=== PATIENT | female | born 1975 | race African-American/Black ===

== ENCOUNTER 2018-07-24 19:32 | Emergency (ER) | payer OTHER ==
[~2018-07-24] VITALS: Ht 162.6 cm; Wt 79.4 kg
[2018-07-24 19:45] VITALS: Ht 162.6 cm; Wt 79.4 kg
[2018-07-24 21:11] VITALS: BP 135/89
== END 2018-07-24 21:11 | disposition home or self-care (01) ==
LOC: ED 19:32
DX: R51 Headache (principal); F41.9 Anxiety disorder, unspecified; Z88.6 Allergy status to analgesic agent

== ENCOUNTER 2019-05-04 14:23 | Emergency (ER) | payer MEDICAID ==
[~2019-05-04] VITALS: Ht 160 cm; Wt 81.6 kg
[2019-05-04 14:31] VITALS: Ht 160 cm; Wt 81.6 kg
[2019-05-04 15:04] LABS: BASOPHIL % 0.8 % (0-2); PLATELET COUNT 240 x10^3mcL (130-400); RED CELL DISTRIBUTION WIDTH 13.6 % (11.5-14.5)
[2019-05-04 16:51] VITALS: BP 121/72
== END 2019-05-04 16:51 | disposition home or self-care (01) ==
LOC: ED 14:23
PROVIDERS: Emergency Medicine
DX: D25.9 Leiomyoma of uterus, unspecified (principal); F17.210 Nicotine dependence, cigarettes, uncomplicated; Z88.6 Allergy status to analgesic agent
CPT/HCPCS: 36415; 99406